=== PATIENT | female | born 1975 | race African-American/Black ===

== ENCOUNTER 2021-02-13 06:19 | Day surgery (SDC) | payer BC, OTHER ==
[2021-02-12 13:14] VITALS: BMI 26.2
[2021-02-13] MEDS ORDERED: SUCCINYLCHOLINE CHLORIDE 200 MG/10 ML SYRINGE ONE (06:41)
[2021-02-13] MEDS ORDERED: PROPOFOL 20 ML ONE ×2 (06:41)
[2021-02-13] MEDS ORDERED: DEXAMETHASONE SOD PHOSPHATE 4 MG/1 ML VIAL ONE (06:42)
[2021-02-13] MEDS ORDERED: ONDANSETRON 4 MG/2 ML VIAL ONE (06:42)
[2021-02-13] MEDS ORDERED: KETOROLAC TROMETHAMINE 30 MG/1 ML VIAL ONE (06:42)
[2021-02-13] MEDS ORDERED: ceFAZolin SODIUM 1 GM VIAL ONE (06:42)
[2021-02-13] MEDS ORDERED: SODIUM CHLORIDE 0.9% P/F 10 ML VIAL IJ ONE (06:42)
[2021-02-13] MEDS ORDERED: MIDAZOLAM HCL 2 MG/2 ML SINGLE DOSE VIAL ONE ×2 (06:42→06:51)
[2021-02-13 06:45] VITALS: TEMP 97.7
[2021-02-13] MEDS ORDERED: LIDOCAINE HCL/PF 2% SDV 5ML VIAL ONE (06:47)
[2021-02-13] MEDS ORDERED: ROPIVACAINE HCL 0.5% 30ML VIAL ONE (06:51)
[2021-02-13] MEDS ORDERED: BUPIVACAINE HCL 100 ML ONE (07:07)
[2021-02-13 10:32] VITALS: BP 116/70; PULSE 70
[2021-02-13] MEDS ORDERED: ONDANSETRON 4 MG/2 ML VIAL IVPUSH PRN (10:32)
[2021-02-13] MEDS ORDERED: oxyCODONE HCL 5 MG TABLET PO PRN ×2 (10:32)
[2021-02-13] MEDS ORDERED: LACTATED RINGERS SOLUTION 1,000 ML IV SCH (10:45)
== END 2021-02-13 11:05 | disposition home or self-care (01) ==
LOC: FASU 06:19
PROVIDERS: ATTEND Orthopaedic Surgery Hand Surgery
PROC: 0LN60ZZ Release Left Lower Arm and Wrist Tendon, Open Approach (ICD-10-PCS; 2021-02-13)
PROC: 0PSJ04Z Reposition Left Radius with Internal Fixation Device, Open Approach (ICD-10-PCS; principal; 2021-02-13 08:10)
DX: S52.572A Other intraarticular fracture of lower end of left radius, initial encounter for closed fracture (principal); X58.XXXA Exposure to other specified factors, initial encounter; Y93.9 Activity, unspecified; Y92.9 Unspecified place or not applicable
CPT/HCPCS: 25290; 25609; C1713; 73110-TC-LT-FY; 81025